=== PATIENT | female | born 1990 | race Caucasian/White ===

== ENCOUNTER 2024-05-31 14:36 | Emergency (ER) | payer MEDICAID ==
[~2024-05-31] VITALS: Ht 154.9 cm; Wt 81.6 kg
[2024-05-31 14:54] VITALS: BP_SYST 169; PULSE 98; RESP 18; TEMP 98.3; O2SAT 97
[2024-05-31 17:13] LABS: COVID19 ANTIGEN SOFIA FIA NEGATIVE (NEGATIVE); INFLUENZA TYPE A Negative (NEGATIVE); INFLUENZA TYPE B NEGATIVE (NEGATIVE)
[2024-05-31] MEDS ORDERED: BROM118S61 PO (18:06)
[2024-05-31] MEDS ORDERED: AMOX500C2 PO (18:06)
[2024-05-31] MEDS ORDERED: ESCI10TA PO (18:43)
[2024-05-31] MEDS ORDERED: VIS25 PO (18:43)
[2024-05-31 19:03] VITALS: BP_SYST 169; PULSE 98; RESP 18; TEMP 98.3; O2SAT 97
== END 2024-05-31 18:45 | disposition home or self-care (01) ==
LOC: SED 14:36
DX: J18.9 Pneumonia, unspecified organism (principal); J32.8 Other chronic sinusitis; Z20.822 Contact with and (suspected) exposure to COVID-19; Z79.899 Other long term (current) drug therapy; Z79.2 Long term (current) use of antibiotics
CPT/HCPCS: 36415; 71045; 99284